=== PATIENT | male | born 1990 | race Hispanic/Latino ===

== ENCOUNTER → 2017-12-29 | Day surgery (SDC) | payer OTHER ==
[~2017-12-29] MED LIST: ACETAMINOPHEN 1000 MG/100 ML 100 ML IV ONE; ACETAMINOPHEN/CODEINE 300MG - 30MG TAB ONE; BUPIVACAINE 0.5%/EPI 30 ML SDV INJ ONE; CEFAZOLIN SOD 2 GM/D5W 50ML 50 ML IV ONE; DEXAMETHASONE SOD PHOS INJ 4 MG/ML VIAL ONE; FENTANYL CITRATE/PF 100MCG/2 ML INJ ONE; KETOROLAC TROMETHAMINE 30 MG/ML VIAL ONE; LIDOCAINE HCL 2% LOCAL INJ 5 ML SDV VIAL INJ ONE; MIDAZOLAM HCL 2 MG/2 ML VIAL ONE; ONDANSETRON HCL INJ 2 MG/ML VIAL ONE; PROPOFOL IV EMULSION 10 MG/ML 20 ML VIAL ONE; SEVOFLURANE INHAL SOLN 250 ML PEN BTL ONE
[2017-12-29 12:15] VITALS: BP 116/74
--- NOTE | 2017-12-30 15:31 | Operative Report ---
DATE OF PROCEDURE: December 29, 2017 PREOPERATIVE DIAGNOSES 1. Right knee medial meniscus tear. 2. Right knee lateral meniscus tear. 3. Right knee anterior cruciate ligament tear. 4. Right knee degenerative joint disease of the knee. POSTOPERATIVE DIAGNOSES 1. Right knee medial meniscus tear. 2. Right knee lateral meniscus tear. 3. Right knee anterior cruciate ligament tear. 4. Right knee degenerative joint disease of the knee. PROCEDURE PERFORMED: Patient underwent a 1. Right knee examination under anesthesia. 2. Right knee arthroscopy. 3. Right knee partial medial meniscectomy. 4. Right knee partial lateral meniscectomy. 5. Right knee chondroplasty of the patella, the trochlea, the medial femoral condyle and the medial tibia plateau, the lateral femoral condyle and the lateral tibial plateau. FURNACE RELINER: Linda Contreras. ANESTHESIA: General endotracheal intubation anesthesia. INTRAVENOUS FLUIDS: As per the anesthesia record. DESCRIPTION OF PROCEDURE: Mr. Paz was taken to the operating room and placed in the supine position on the operating room table. Following induction of general anesthesia as well as endotracheal intubation, the patient's right lower extremity was examined under anesthesia. He was found to have a mild effusion within the knee joint. He was also found to have ligamentous instability consistent with an anterior cruciate ligament tear. The patient's lower extremity was prepped and draped in standard surgical fashion. A 2-portal technique was used to provide this patient an arthroscopic evaluation of the knee joint. Examination of the suprapatellar pouch, medial and lateral gutters found no evidence of loose bodies. There was, however, evidence of chondromalacia of the patellar and trochlear surfaces. The scope was advanced into the medial compartment, and examination of the medial compartment demonstrated a torn medial meniscus. There was also evidence of chondromalacia of the medial femoral condyle and medial tibial plateau. A combination of biting forceps and a motorized shaver were used to resect the torn portion of the meniscus. Chondroplasties of the medial femoral condyle and medial tibial plateau were performed at this time. The scope was then advanced into the intercondylar notch, and the anterior cruciate ligament was found to be torn. The scope was advanced into the lateral compartment, and there was a torn and macerated lateral meniscus tear. There was also chondromalacia of the articulating surfaces. A combination of biting forceps and a motorized shaver were used to resect the torn portion of the lateral meniscus. Chondroplasties of the lateral femoral condyle and lateral tibial plateau were performed at this time. The scope was then advanced to the suprapatellar pouch, and chondroplasties of the patella and trochlea were performed. The knee was then deflated of its sterile normal saline. The portal sites were closed. The knee was then injected with 1/2 percent Marcaine with epinephrine. Sterile dressings were applied, and the patient was then awakened and taken to the postanesthesia care unit in stable condition. Linda Contreras acted as the contact lens assistant for this case and was necessary for both the prepping and draping of the patient as well as the positioning of the leg and the closure of the incisions that allowed this case to be successful. Job#: [id number]
== END | disposition home or self-care (01) ==
LOC: OR 07:46
PROVIDERS: ATTEND Specialist
DX: S83.221A Peripheral tear of medial meniscus, current injury, right knee, initial encounter (principal); S83.261A Peripheral tear of lateral meniscus, current injury, right knee, initial encounter; M23.611 Other spontaneous disruption of anterior cruciate ligament of right knee; M17.11 Unilateral primary osteoarthritis, right knee; M22.41 Chondromalacia patellae, right knee; E66.01 Morbid (severe) obesity due to excess calories; F17.210 Nicotine dependence, cigarettes, uncomplicated; X58.XXXA Exposure to other specified factors, initial encounter; Z68.41 Body mass index [BMI] 40.0-44.9, adult
CPT/HCPCS: 29880; J0131; J0690; J1100; J1885; J2001; J2250; J2405; J2704

== ENCOUNTER → 2018-01-21 | Outpatient (RCR) | payer OTHER | LOC: PT 09:40 | PROVIDERS: ATTEND Specialist | DX: M25.561 Pain in right knee (principal); M25.661 Stiffness of right knee, not elsewhere classified; R26.2 Difficulty in walking, not elsewhere classified; M62.81 Muscle weakness (generalized) ==

== ENCOUNTER 2018-02-16 16:51 | Outpatient (RCR) | payer OTHER | END 2018-02-21 | LOC: PT 16:51 | PROVIDERS: ATTEND Specialist | DX: M25.561 Pain in right knee (principal); M25.661 Stiffness of right knee, not elsewhere classified; R26.2 Difficulty in walking, not elsewhere classified; M62.81 Muscle weakness (generalized) ==

== ENCOUNTER 2018-02-24 16:58 | Outpatient (RCR) | payer OTHER | END 2018-03-24 | LOC: PT 16:58 | PROVIDERS: ATTEND Specialist | DX: M25.561 Pain in right knee (principal); M25.661 Stiffness of right knee, not elsewhere classified; R26.2 Difficulty in walking, not elsewhere classified ==

== ENCOUNTER 2021-08-05 10:06 | Emergency (ER) | payer OTHER ==
[~2021-08-05] VITALS: Ht 180.3 cm; Wt 134.3 kg
[2021-08-05] MEDS ORDERED: KETOROLAC TROMETHAMINE 30 MG/ML VIAL IV STA (10:54)
[2021-08-05] MEDS ORDERED: SODIUM CHLORIDE 0.9% 1000ML 1,000 ML IV SCH (11:00)
[2021-08-05] MEDS ORDERED: LORAZEPAM INJ 2 MG/ML VIAL IV ONE (11:00)
[2021-08-05] MEDS ORDERED: LOSARTAN POTASS25 MG PO (11:11)
[2021-08-05] MEDS ORDERED: METOPROLOL TARTRATE 50 MG TAB PO ONE (11:30)
[2021-08-05] MEDS ORDERED: METOPROLOL TARTRATE 50 MG TAB ONE (11:33)
[2021-08-05] MEDS ORDERED: METFORMIN HCL500 MG PO (11:38)
[2021-08-07] MEDS ORDERED: KETOROLAC TROMETHAMINE 60 MG/2 ML VIAL ONE (00:35)
[2021-08-07] MEDS ORDERED: ONDANSETRON HCL 4 MG ORAL DISINTEGRATING TAB ONE (00:36)
[2021-08-07] MEDS ORDERED: CEFTRIAXONE 1 GM VIAL ONE (00:36)
== END 2021-08-05 11:57 | disposition home or self-care (01) ==
LOC: FSED 10:45
DX: R07.9 Chest pain, unspecified (principal); I10 Essential (primary) hypertension; E11.65 Type 2 diabetes mellitus with hyperglycemia; Z79.84 Long term (current) use of oral hypoglycemic drugs; Z79.899 Other long term (current) drug therapy; Z87.891 Personal history of nicotine dependence
CPT/HCPCS: 71045; 80053; 82553; 84484; 85025; 93005; 96374; 96375; 99284; J1885; J2060; J7030; J0696; Q0162